=== PATIENT | male | born 1955 | race Caucasian/White ===

== ENCOUNTER → 2024-03-10 | Outpatient (CLI) | payer MEDICARE, BC, SELFPAY ==
[2024-03-10 12:56] LABS: Prostate Specific Antigen < 0.10 ng/mL (0-4.00)
== END | disposition home or self-care (01) ==
LOC: SCTO 11:55
PROVIDERS: PCP Family Medicine; Referring Provider Radiology Therapeutic Radiology; Visit Provider Radiology Therapeutic Radiology
DX: C61 Malignant neoplasm of prostate (principal)
CPT/HCPCS: 36415; 84153

== ENCOUNTER 2024-03-17 14:17 | Outpatient (RCR) | payer MEDICARE, BC, SELFPAY ==
--- NOTE | 2024-03-17 14:53 | CTCFLWUP_ITS ---
[facility] [address] [place], [place] [address] FOLLOW-UP NOTE Date: 03/17/2024 MR#: [id number] Name: OLGA PINON : 1955 Dx: C61 Malignant neoplasm of prostate Identification. Prostate CA status post radical prostatectomy 06/03/2018 at [facility]. PSA has risen to 0.15 on 09/21/2022 and up to 0.18 on July 19, 2022. Recommended at least 1 year or 4 injections of Lupron but decided to stop after only 2 or 6 months wo rth. Most recent PSA less than 0.10 on 03/10/2024. Has had abdominal pain and hematuria but kidney stones reportedly have been discovered and patient rooney s been followed at [facility]. I will see patient in 4 months with another PSA. Electronically signed by: Romel Sherwood M.D. 03/17/2024 2:51 PM
== END 2024-03-31 23:59 | disposition home or self-care (01) ==
LOC: SCTC 14:17
PROVIDERS: PCP Family Medicine; Referring Provider Family Medicine; Visit Provider Radiology Therapeutic Radiology
DX: C61 Malignant neoplasm of prostate (principal); Z90.79 Acquired absence of other genital organ(s)
CPT/HCPCS: 99212; G0463

== ENCOUNTER → 2024-04-09 | Outpatient (CLI) | payer MEDICARE, BC, SELFPAY ==
[2024-04-09 13:43] LABS: Alanine Aminotransferase 47 U/L (10-49); Albumin, Serum 4.8 gm/dL (3.4-4.8); Albumin/Globulin Ratio 2.2 (1.2-2.2); Alkaline Phosphatase 114 U/L (46-116); Anion Gap 11 (7-16); Aspartate Amino Transferase 23 U/L (0-34); BUN/Creatinine Ratio 14 Ratio (12-20); Bilirubin,Total 0.8 mg/dL (0.3-1.2); Blood Urea Nitrogen 13 mg/dL (9-23); Calcium 9.9 mg/dL (8.3-10.6); Calcium (Corrected) 9.9 mg/dL (8.5-10.1); Carbon Dioxide 24.9 mMol/L (20.0-31.0); Cardiac Risk Estimate 2.9 RATIO (4.0-6.7); Chloride 101 mMol/L (98-107); Cholesterol 197 mg/dL (132-200); Creatinine (Component) 0.9 mg/dL (0.6-1.3); Globulin 2.2 gm/dL (2.3-3.5); Glucose 109 mg/dL (74-106); HDL Cholesterol 68 mg/dL (40-60); LDL Cholesterol,Calculated 93 mg/dL (0-130); Osmolality,Calculated 274 (275-295); Potassium 4.1 mMol/L (3.4-5.1); Sodium 137 mMol/L (136-145); Triglycerides 180 mg/dL (30-150); eGFR > 60 See Note
== END | disposition home or self-care (01) ==
LOC: COPL 12:29
PROVIDERS: PCP Family Medicine; Referring Provider Physician Assistant; Visit Provider Physician Assistant
DX: I10 Essential (primary) hypertension (principal); E78.5 Hyperlipidemia, unspecified; R31.9 Hematuria, unspecified
CPT/HCPCS: 36415; 80053; 80061; 81001

== ENCOUNTER → 2024-05-26 | Outpatient (CLI) | payer MEDICARE, BC, SELFPAY ==
[2024-05-26 15:16] LABS: Collection Type, Urine Clean Catch
[2024-05-26 17:03] LABS: Bilirubin,Urine Negative (Negative); Blood,Urine 3+ (Negative); Color,Urine Drk-Yellow (Lt Yel-Yel); Glucose, Urine Negative (Negative); Ketones,Urine Negative (Negative); Leukocyte Esterase,Urine Positive (Negative); Nitrite,Urine Positive (Negative); PH,Urine 5.5 (5.0-7.0); Protein,Urine 2+ (Neg - Trace); RBC,Urine 214 /hpf (0-3); Specific Gravity,Urine 1.023 (1.001-1.035); Squamous Epithelial Cell,Urine 1 /hpf (0-5); Urobilinogen,Urine Negative mg/dL (0.0-1.0); WBC,Urine 425 /hpf (0-5)
[2024-05-26 17:06] LABS: Clarity,Urine Hazy (Clear/Hazy)
== END | disposition home or self-care (01) ==
LOC: SLDO 15:00
PROVIDERS: PCP Physician Assistant; Referring Provider Physician Assistant; Visit Provider Physician Assistant
DX: N39.0 Urinary tract infection, site not specified (principal)
CPT/HCPCS: 81001; 87086

== ENCOUNTER → 2024-06-04 | Outpatient (CLI) | payer MEDICARE, BC, SELFPAY ==
[2024-06-04 16:03] LABS: Collection Type, Urine Clean Catch; RBC,Urine 0 /hpf (0-3); Squamous Epithelial Cell,Urine 0 /hpf (0-5); WBC,Urine 0 /hpf (0-5)
[2024-06-04 17:59] LABS: Bilirubin,Urine Negative (Negative); Blood,Urine Negative (Negative); Clarity,Urine Clear (Clear/Hazy); Color,Urine Yellow (Lt Yel-Yel); Glucose, Urine Negative (Negative); Ketones,Urine Negative (Negative); Leukocyte Esterase,Urine Positive (Negative); Nitrite,Urine Negative (Negative); PH,Urine 5.5 (5.0-7.0); Protein,Urine Trace (Neg - Trace); Specific Gravity,Urine 1.025 (1.001-1.035); Urobilinogen,Urine Negative mg/dL (0.0-1.0)
== END | disposition home or self-care (01) ==
LOC: SLDO 15:34
PROVIDERS: PCP Physician Assistant; Referring Provider Physician Assistant; Visit Provider Physician Assistant
DX: N39.0 Urinary tract infection, site not specified (principal)
CPT/HCPCS: 81001; 87086

== ENCOUNTER → 2024-07-09 | Outpatient (CLI) | payer MEDICARE, BC, SELFPAY ==
[2024-07-09 12:35] LABS: Prostate Specific Antigen < 0.10 ng/mL (0-4.00)
== END | disposition home or self-care (01) ==
LOC: SCTO 10:59
PROVIDERS: PCP Family Medicine; Referring Provider Radiology Therapeutic Radiology; Visit Provider Radiology Therapeutic Radiology
DX: C61 Malignant neoplasm of prostate (principal)
CPT/HCPCS: 36415; 84153

== ENCOUNTER 2024-07-16 13:02 | Outpatient (RCR) | payer MEDICARE, BC, SELFPAY ==
--- NOTE | 2024-07-16 13:31 | CTCFLWUP_ITS ---
[facility] [address] [place], [place] [address] FOLLOW-UP NOTE Date: 07/16/2024 MR#: [id number] Name: OLGA PINON : 1955 Dx: C61 Malignant neoplasm of prostate Identification. Patient with prostate CA robotic assisted radical prostatectomy and bilateral lymph node dissection [facility] 06/03/2018. Final path group 2 (3+4 =7) extraprostatic extension right posterior left posterior lymph node 1 of 40 involved. pT3aN1. PSA also noted to rise to 0.18 on 10/10/2022. Received initial Lupron 03/04/2023 and had second dose on 06/03/2023. 6840 cGy completed on 07/09/2023. Additional doses of Lupron recommended but patient elected to stop at only 2. Most recent PSA July 09, 2024 less than 0.10 States that he has had UTI symptoms since last night and put himself on Pyridium and antibiotics. Patient was seeing his primary care physician regarding this matter. For now patient appears to be in remission, both biochemically and clinically. I will see him again in 6 months with another PSA. Electronically signed by: Romel Sherwood M.D. 07/16/2024 1:28 PM
== END 2024-07-29 23:59 | disposition home or self-care (01) ==
LOC: SCTC 13:02
PROVIDERS: PCP Family Medicine; Referring Provider Family Medicine; Visit Provider Radiology Therapeutic Radiology
DX: Z08 Encounter for follow-up examination after completed treatment for malignant neoplasm (principal); Z85.46 Personal history of malignant neoplasm of prostate; Z90.79 Acquired absence of other genital organ(s); Z92.3 Personal history of irradiation
CPT/HCPCS: 99213; G0463

== ENCOUNTER → 2024-08-25 | Outpatient (CLI) | payer MEDICARE, BC, SELFPAY ==
[2024-08-25 15:24] LABS: Amphetamine/Methamp Scrn,U Negative (Negative); Barbiturate Screen,Urine Negative (Negative); Benzodiazepines Screen,Urine Negative (Negative); Benzoylecgonine Screen, Ur Negative (Negative); Fentanyl Screen,Urine Negative (Negative); Opiate Screen,Urine Positive (Negative); THC Screen,Urine Negative (Negative)
== END | disposition home or self-care (01) ==
LOC: SLDO 14:11
PROVIDERS: PCP Family Medicine; Referring Provider Physician Assistant; Visit Provider Physician Assistant
DX: Z79.891 Long term (current) use of opiate analgesic (principal)
CPT/HCPCS: 80307

== ENCOUNTER → 2024-09-15 | Outpatient (CLI) | payer MEDICARE, BC, SELFPAY ==
[2024-09-15 13:55] LABS: Basophils % (Auto) 0 % (0-2.5); Eosinophils # (Auto) 0.1 Thou/mm3 (0.0-0.5); Eosinophils % (Auto) 1 % (0-10); Hematocrit 40.6 % (41.0-53.0); Immature Granulocytes % (Auto) 1 % (0-0); Immature Granulocytes Auto 0.04 Thou/mm3 (0.00-0.00); Lymphocytes # (Auto) 1.2 Thou/mm3 (1.0-4.8); Lymphocytes % (Auto) 17 % (10-50); Mean Corpuscular HGB Conc 34.5 g/dl (31.0-37.0); Mean Corpuscular Hemoglobin 30.9 pg (25.0-35.0); Mean Corpuscular Volume 90 fL (80-100); Monocytes # (Auto) 0.5 Thou/mm3 (0.0-0.8); Monocytes % (Auto) 7 % (0-12); Neutrophils # (Auto) 5.3 Thou/mm3 (1.8-7.7); Neutrophils % (Auto) 73 % (37-80); Nucleated Red Blood Cell % 0 /100 WBC (0); Platelet Count 257 Thou/mm3 (140-440); RDW Standard Deviation 42.2 fL (35.1-43.9); Red Blood Count 4.53 Miln/mm3 (4.50-5.90); White Blood Count 7.2 Thou/mm3 (3.8-10.6)
[2024-09-15 14:16] LABS: Alanine Aminotransferase 64 U/L (10-49); Albumin, Serum 4.5 gm/dL (3.4-4.8); Alkaline Phosphatase 124 U/L (46-116); Anion Gap 11 (7-16); Aspartate Amino Transferase 36 U/L (0-34); BUN/Creatinine Ratio 14 Ratio (12-20); Bilirubin,Direct 0.2 mg/dL (0.0-0.3); Bilirubin,Total 0.7 mg/dL (0.3-1.2); Blood Urea Nitrogen 13 mg/dL (9-23); Calcium 9.3 mg/dL (8.3-10.6); Carbon Dioxide 25.4 mMol/L (20.0-31.0); Cardiac Risk Estimate 2.5 RATIO (4.0-6.7); Chloride 102 mMol/L (98-107); Cholesterol 190 mg/dL (132-200); Creatinine (Component) 0.9 mg/dL (0.6-1.3); Free T4 (Free Thyroxine) 1.13 ng/dL (0.89-1.76); Glucose 101 mg/dL (74-106); HDL Cholesterol 77 mg/dL (40-60); LDL Cholesterol,Calculated 81 mg/dL (0-130); Osmolality,Calculated 275 (275-295); Potassium 4.2 mMol/L (3.4-5.1); Sodium 138 mMol/L (136-145); Thyroid Stimulating Hormone 1.34 uIU/mL (0.55-4.78); Total Protein 6.8 gm/dL (5.7-8.2); Triglycerides 158 mg/dL (30-150); eGFR > 60 See Note
== END | disposition home or self-care (01) ==
LOC: COPL 12:46
PROVIDERS: PCP Family Medicine; Referring Provider Internal Medicine Cardiovascular Disease; Visit Provider Internal Medicine Cardiovascular Disease
DX: I10 Essential (primary) hypertension (principal); E78.2 Mixed hyperlipidemia; I25.118 Atherosclerotic heart disease of native coronary artery with other forms of angina pectoris; I49.9 Cardiac arrhythmia, unspecified
CPT/HCPCS: 36415; 80048; 80061; 80076; 84439; 84443; 85025

== ENCOUNTER → 2024-09-30 | Outpatient (CLI) | payer MEDICARE, BC, SELFPAY ==
[2024-09-30 11:37] LABS: Basophils # (Auto) 0.0 Thou/mm3 (0.0-0.2); Basophils % (Auto) 0 % (0-2.5); Eosinophils # (Auto) 0.1 Thou/mm3 (0.0-0.5); Eosinophils % (Auto) 1 % (0-10); Hematocrit 40.4 % (41.0-53.0); Hemoglobin 14.3 g/dL (13.5-16.0); Immature Granulocytes Auto 0.02 Thou/mm3 (0.00-0.00); Lymphocytes # (Auto) 1.3 Thou/mm3 (1.0-4.8); Lymphocytes % (Auto) 14 % (10-50); Mean Corpuscular HGB Conc 35.4 g/dl (31.0-37.0); Mean Corpuscular Hemoglobin 31.5 pg (25.0-35.0); Mean Corpuscular Volume 89 fL (80-100); Monocytes # (Auto) 0.5 Thou/mm3 (0.0-0.8); Monocytes % (Auto) 5 % (0-12); Neutrophils # (Auto) 7.3 Thou/mm3 (1.8-7.7); Neutrophils % (Auto) 79 % (37-80); Nucleated Red Blood Cell # 0.00 Thou/mm3 (0.00-0.00); Nucleated Red Blood Cell % 0 /100 WBC (0); Platelet Count 288 Thou/mm3 (140-440); RDW Standard Deviation 42.7 fL (35.1-43.9); Red Blood Count 4.54 Miln/mm3 (4.50-5.90); White Blood Count 9.2 Thou/mm3 (3.8-10.6)
[2024-09-30 11:48] LABS: Glucose Estimated Average 97 mg/dL (80-131); Hemoglobin A1C 5.0 % Hgb (4.8-6.0)
[2024-09-30 11:52] LABS: Prostate Specific Antigen < 0.10 ng/mL (0-4.00)
[2024-09-30 11:57] LABS: Alanine Aminotransferase 79 U/L (10-49); Albumin, Serum 4.6 gm/dL (3.4-4.8); Albumin/Globulin Ratio 1.9 (1.2-2.2); Alkaline Phosphatase 128 U/L (46-116); Anion Gap 9 (7-16); Aspartate Amino Transferase 43 U/L (0-34); BUN/Creatinine Ratio 13 Ratio (12-20); Bilirubin,Total 0.9 mg/dL (0.3-1.2); Blood Urea Nitrogen 12 mg/dL (9-23); Calcium 9.4 mg/dL (8.3-10.6); Calcium (Corrected) 9.4 mg/dL (8.5-10.1); Carbon Dioxide 23.9 mMol/L (20.0-31.0); Chloride 106 mMol/L (98-107); Creatinine (Component) 0.9 mg/dL (0.6-1.3); Globulin 2.4 gm/dL (2.3-3.5); Glucose 105 mg/dL (74-106); Osmolality,Calculated 277 (275-295); Potassium 4.0 mMol/L (3.4-5.1); Sodium 139 mMol/L (136-145); Thyroid Stimulating Hormone 2.07 uIU/mL (0.55-4.78); Total Protein 7.0 gm/dL (5.7-8.2); Vitamin B12 1609 pg/mL (211-911); Vitamin D 25 Hydroxy Total 42.9 ng/mL (7.3-40.2); eGFR > 60 See Note
[2024-09-30 13:09] LABS: Collection Type, Urine Clean Catch
[2024-09-30 13:48] LABS: Bacteria,Urine 1+; Bilirubin,Urine 1+ (Negative); Blood,Urine 3+ (Negative); Color,Urine Drk-Orange (Lt Yel-Yel); Glucose, Urine Negative (Negative); Ketones,Urine Negative (Negative); Leukocyte Esterase,Urine Positive (Negative); Nitrite,Urine Positive (Negative); PH,Urine 6.0 (5.0-7.0); Protein,Urine 2+ (Neg - Trace); RBC,Urine 387 /hpf (0-3); Specific Gravity,Urine 1.024 (1.001-1.035); Squamous Epithelial Cell,Urine 1 /hpf (0-5); Urobilinogen,Urine 3.0 mg/dL (0.0-1.0); WBC,Urine 1208 /hpf (0-5)
[2024-09-30 14:28] LABS: Clarity,Urine Cloudy (Clear/Hazy); Culture Indicated,Urine Yes
== END | disposition home or self-care (01) ==
LOC: COPL 11:05
PROVIDERS: PCP Family Medicine; Referring Provider Physician Assistant; Visit Provider Physician Assistant
DX: E78.5 Hyperlipidemia, unspecified (principal); I10 Essential (primary) hypertension; E55.9 Vitamin D deficiency, unspecified; R94.5 Abnormal results of liver function studies; C61 Malignant neoplasm of prostate; R73.01 Impaired fasting glucose
CPT/HCPCS: 36415; 80053; 81001; 82306; 82607; 83036; 84153; 84443; 85025; 87086

== ENCOUNTER → 2024-10-05 | Outpatient (CLI) | payer MEDICARE, BC, SELFPAY ==
[2024-10-08 06:33] LABS: Fecal Globin Result NOT DETECTED (NOT DETECTED)
== END | disposition home or self-care (01) ==
LOC: SLDO 14:29
PROVIDERS: PCP Physician Assistant; Referring Provider Physician Assistant; Visit Provider Physician Assistant
DX: E78.5 Hyperlipidemia, unspecified (principal); I10 Essential (primary) hypertension; E55.9 Vitamin D deficiency, unspecified; R94.5 Abnormal results of liver function studies; C61 Malignant neoplasm of prostate; R73.01 Impaired fasting glucose
CPT/HCPCS: 82274; G0328

== ENCOUNTER → 2024-12-09 | Outpatient (CLI) | payer MEDICARE, BC, SELFPAY ==
[2024-12-09 14:21] LABS: Collection Type, Urine Clean Catch
[2024-12-09 17:29] LABS: Bilirubin,Urine Negative (Negative); Blood,Urine 3+ (Negative); Color,Urine Yellow (Lt Yel-Yel); Glucose, Urine Negative (Negative); Ketones,Urine Negative (Negative); Leukocyte Esterase,Urine Positive (Negative); Nitrite,Urine Negative (Negative); PH,Urine 5.5 (5.0-7.0); Protein,Urine 1+ (Neg - Trace); RBC,Urine 128 /hpf (0-3); Specific Gravity,Urine 1.023 (1.001-1.035); Squamous Epithelial Cell,Urine 3 /hpf (0-5); Urobilinogen,Urine Negative mg/dL (0.0-1.0); WBC,Urine 881 /hpf (0-5)
[2024-12-09 17:41] LABS: Clarity,Urine Cloudy (Clear/Hazy)
== END | disposition home or self-care (01) ==
LOC: SLDO 14:11
PROVIDERS: Referring Provider Registered Nurse; Visit Provider Registered Nurse
DX: N39.0 Urinary tract infection, site not specified (principal)
CPT/HCPCS: 81001; 87086

== ENCOUNTER → 2025-01-11 | Outpatient (CLI) | payer MEDICARE, BC, SELFPAY ==
[2025-01-11 14:04] LABS: Prostate Specific Antigen < 0.10 ng/mL (0-4.00)
== END | disposition home or self-care (01) ==
LOC: SCTO 12:10
PROVIDERS: PCP Family Medicine; Referring Provider Radiology Therapeutic Radiology; Visit Provider Radiology Therapeutic Radiology
DX: C61 Malignant neoplasm of prostate (principal)
CPT/HCPCS: 36415; 84153

== ENCOUNTER 2025-01-14 13:01 | Outpatient (RCR) | payer MEDICARE, BC, SELFPAY ==
--- NOTE | 2025-01-14 13:32 | CTCFLWUP_ITS ---
[facility] [address] [place], [place] [address] FOLLOW-UP NOTE Date: 01/14/2025 MR#: [id number] Name: OLGA PINON : 1955 Dx: C61 Malignant neoplasm of prostate Identification. Patient with prostate CA status post robotic assisted prostatectomy bilateral lymph node dissection [facility] 06/03/2018. Final path group 2 (3+4 equal 7) extraprostatic stanchion right posterior left posterior lymph node 1 of 40 involved. pT3aN1 stage Yamileth. PSA also noted be rising to 0.18 on 10/10/2022. Received initial Lupron 03/04/2023 and had second dose 06/03/2023. 6840 cGy completed 07/09/2023. Additional dose of Lupron along with one of the newer antiandrogens recommended but patient elected to stop and only 2. Most recent PSA 01/11/2025 less than 0.10. A#1 stage IV ApT3 N1c of the prostate status post prostatectomy [facility] 06/03/2018. A#2. Elected to have only limited hormone manipulation receiving radiation therapy 1640 cGy completed 07/09/2023. Minimal residual pelvic symptoms. A#4. PSA remains low at less than 0.10 on 01/12/2024. A#5. Urged to be followed by primary care provider regarding high BP noted today 160/90. Recently had UTI treated with antibiotics. Cc: Adis Garvey MD Electronically signed by: Romel Sherwood M.D. 01/14/2025 1:30 PM
== END 2025-01-29 23:59 | disposition home or self-care (01) ==
LOC: SCTC 13:01
PROVIDERS: PCP Family Medicine; Referring Provider Family Medicine; Visit Provider Radiology Therapeutic Radiology
DX: C61 Malignant neoplasm of prostate (principal); Z90.79 Acquired absence of other genital organ(s); Z92.3 Personal history of irradiation
CPT/HCPCS: 99213; G0463

== ENCOUNTER → 2025-03-12 | Outpatient (CLI) | payer MEDICARE, BC, SELFPAY | END | disposition home or self-care (01) | LOC: SLDO 14:31 | PROVIDERS: PCP Physician Assistant; Referring Provider Physician Assistant; Visit Provider Physician Assistant | DX: N39.0 Urinary tract infection, site not specified (principal) | CPT/HCPCS: 87086 ==

== ENCOUNTER 2025-03-19 14:04 | Emergency (ER) | payer MEDICARE, BC, SELFPAY ==
[2025-03-19 14:11] VITALS: BP 134/74; PULSE 89; RESP 20; TEMP 36.8; O2SAT 100; BMI 33.2
[2025-03-19 14:12] VITALS: PULSE 90; O2SAT 99
--- NOTE | 2025-03-19 14:45 | XR_ITS ---
Examination: CT cervical spine without contrast 2-D sagittal reconstructions 2-D coronal reconstructions 3-D reconstructions. Exam date and time: March 19, 2025, 1632 hours INDICATIONS: Patient fell today with injury to the neck, neck pain CTDI:vol (mGy) 16.7 DLP: (mGycm) 369 Technique: Multiple 2 mm axial sections of the cervical spine have been obtained. The coronal and sagittal reconstructions have been obtained. 3-D reconstructions have been obtained. Low dose protocols were performed. One or more of the following dose reduction techniques were used; automated exposure control, adjustment of the mA and/or KV according to patient size, use of iterative reconstruction technique. Findings: Axial sections demonstrate intact base of the skull. C1 exhibit satisfactory relationship to the odontoid. No acute cervical vertebral body fracture seen. Alignment posterior spinous processes satisfactory. Impression: No acute cervical fracture.
--- NOTE | 2025-03-19 14:45 | XR_ITS ---
Examination: CT chest with intravenous contrast CT abdomen with intravenous contrast CT pelvis with intravenous contrast 2-D coronal and sagittal reconstructions Time of exam: March 19, 2025, 1637 hours INDICATIONS: Patient fell today with injury to the chest and abdomen, chest pain abdomen pain CTDI: vol (mGy) : 9.67 DLP: (mGycm): 765 Technique: Multiple axial images of the chest, abdomen and pelvis with intravenous contrast, 3.0 mm slice thickness. Images obtained post intravenous injection Isovue 370 60 cc. 2-D sagittal and coronal reconstructions. Low dose protocols were performed. One or more of the following dose reduction techniques were used; automated exposure control, adjustment of the mA and/or KV according to patient size, use of iterative reconstruction technique. Findings: Thoracic aorta pulmonary arteries intact Heavy calcification left anterior descending coronary artery. No hemopericardium No pneumothorax pulmonary contusion or hemothorax The manubrium and the body of the sternum are intact No thoracic or lumbar vertebral body compression fracture Sacral segments appear intact Acute fractures left fifth, sixth, seventh ribs laterally without significant displacement No visualized liver splenic or renal laceration, no perinephric hematoma No gallstones Abdominal aorta intact with no free blood in the abdomen Negative for pneumoperitoneum Normal appendix Urinary bladder intact Bones of the pelvis and hips appear intact IMPRESSION: Acute nondisplaced fractures left fifth, sixth, seventh ribs Thoracic aorta pulmonary arteries intact No hemopericardium, pneumothorax, pulmonary contusion or hemothorax No abdominal parenchymal laceration Abdominal aorta intact No free body in the abdomen or pelvis
--- NOTE | 2025-03-19 14:45 | XR_ITS ---
Examination: CT brain head without contrast. 2-D sagittal coronal reconstructions Date and time of exam: March 19, 2025, 1629 hours, comparison January 26, 2005 INDICATIONS: Patient fell today with injury to the back of the head, head pain CTDI: vol (mGy): 56 DLP: (mGycm): 1273 Technique: Multiple CT axial sections of the brain have been obtained, 5 mm slice thickness. Contrast has not been administered. 2-D sagittal, coronal reconstructions have been obtained Low dose protocols were performed. One or more of the following dose reduction techniques were used; automated exposure control, adjustment of the mA and/or KV according to patient size, use of iterative reconstruction technique. Findings: No significant ventricular enlargement. Intra-axial or extra-axial hemorrhage density is not seen. No mass effect or midline shift Basal cisterns are not remarkable. Fourth ventricle is midline. Cranial vault intact. Impression: Negative for acute hemorrhage, mass effect or midline shift
--- NOTE | 2025-03-19 14:47 | PD.EDFALL ---
ED Fall Injury RME/HPI General Chief Complaint: Fall Stated Complaint: FALL Time Seen by Provider: 03/19/25 14:08 Arrival date/time: 03/19/25 14:04 69-year-old male patient with past medical history of hypertension, currently not on any blood thinners, came in for evaluation regarding fall. Patient fell off the ladder about 10 feet high landing on his back hitting the head and back on the brakes first. Patient denies any LOC patient complained of headache, neck pain, left chest wall pain, low back pain, severity moderate. According to him after the fall he was able to ambulate. Denies any shortness of breath, denies any vomiting. Patient was given pain medication on the way to the emergency room by EMS. Related Data Home Medications ?Medication ?Instructions ?Recorded ?Confirmed atorvastatin 20 mg tablet 20 mg PO QDAY 12/27/17 03/12/23 cholecalciferol (vitamin D3) 50 2,000 unit PO QDAY 12/27/17 03/12/23 mcg (2,000 unit) capsule lisinopril 10 mg tablet 10 mg PO QDAY 12/27/17 03/12/23 cyanocobalamin (vitamin B-12) 500 500 mcg PO QDAY 02/04/18 03/12/23 mcg tablet (Vitamin B-12) tadalafil 20 mg tablet (Cialis) 20 mg PO DIRECTED PRN 08/29/21 03/12/23 Previous Rx's ?Medication ?Instructions ?Recorded lidocaine 5 % topical patch 1 patch topical QDAY #15 ea 03/19/25 methocarbamol 500 mg tablet 500 mg PO Q8H PRN pain and spasm 03/19/25 #20 tabs Allergies Allergy/AdvReac Type Severity Reaction Status Date / Time No Known Allergies Allergy Verified 03/19/25 14:11 Review of Systems Review of Systems Narrative Review of Systems: Review of system reviewed and within normal limits except mentioned in HPI ED Exam Narrative Physical exam: VITAL SIGNS: Reviewed. GENERAL APPEARANCE: Alert and interactive, follows commands, no acute distress, HEAD AND FACE: Non-traumatic. ENT: PERRL, pink conjunctivitis, eyelid no trauma, Mucous membrane moist. NECK: Supple, posterior neck tenderness, no nuchal rigidity. CHEST: Left posterior rib cage tenderness, no crepitus, no paradoxical movement, no retractions. LUNGS: Clear, well ventilated, symmetric, no rales, no wheezing, no ronchi, no stridor, good breath sounds bilaterally. HEART: Regular rate, regular rhythm, no murmur, no gallops. ABDOMEN: Soft, positive bowel sounds, nondistended, no guarding, nontender, no rebound, no masses, RECTAL: Deferred. GENITAL: Deferred. NEUROLOGICAL: Gross motor function intact sensory function intact, Appropriate for age. MUSCULOSKELETAL: low back tenderness, full range of motion. EXTREMITIES: Nontender, full range of motion. SKIN: Color pink, dry, no rash, no lacerations, no abrasions, no contusions. LYMPHATICS: Deferred. Course Quality Measures none Orders Category Date Time Status CT Screening NOW Care 03/19/25 14:46 Active Incentive Spirometry Treatment NOW Care 03/19/25 17:[address] cervical spine wo con Stat Exams 03/19/25 14:[address] chest abdomen pelvis w Stat Exams 03/19/25 14:[address] head/brain wo con Stat Exams 03/19/25 14:45 Completed CBC [CBC] Stat Lab 03/19/25 15:20 Completed CMP [Comprehensive Metabolic Panel] Stat Lab 03/19/25 15:20 Completed PTT [Partial Thromboplastin Time] Stat Lab 03/19/25 15:20 Completed HYDROmorphone INJ [Dilaudid Inj] Med 03/19/25 17:43 Discontinued 1 mg IVP X1 ONE Lidocaine 5% Patch Med 03/19/25 17:43 Discontinued 1 patch TOP X1 ONE Morphine* Inj Med 03/19/25 15:09 Discontinued 4 mg IVP X1 ONE Ondansetron Inj [Zofran Inj] Med 03/19/25 15:09 Discontinued 4 mg IVP X1 ONE Vital Signs Vital signs: Vital Signs Temperature 98.3 F 03/19/25 14:11 Pulse Rate 89 03/19/25 14:11 Respiratory Rate 20 03/19/25 14:11 Blood Pressure 134/74 H 03/19/25 14:11 Pulse Oximetry (%) 100 03/19/25 14:11 Oxygen Delivery Method Room Air 03/19/25 14:11 Fall MDM Narrative MDM Narrative:: 69-year-old male patient with past medical history of hypertension, currently not on any blood thinners, came in for evaluation regarding fall. Patient fell off the ladder about 10 feet high landing on his back hitting the head and back on the brakes first. Patient denies any LOC patient complained of headache, neck pain, left chest wall pain, low back pain, severity moderate. According to him after the fall he was able to ambulate. Denies any shortness of breath, denies any vomiting. Patient was given pain medication on the way to the emergency room by EMS. CT scan of the head came back unremarkable. CT scan of the neck came back unremarkable CT scan of the chest abdomen and pelvis showed Acute nondisplaced fractures left fifth, sixth, seventh ribs Thoracic aorta pulmonary arteries intact No hemopericardium, pneumothorax, pulmonary contusion or hemothorax No abdominal parenchymal laceration Abdominal aorta intact No free body in the abdomen or pelvis Patient stable through a couple Of normal. Results discussed with the patient. Patient was given lidocaine patch, morphine, Zofran, and Dilaudid. Patient is ambulatory prior to discharge. Pain is tolerable according to him. Patient is satting 97% on room air Incentive spirometry was done in the emergency room and had an education regarding how to use it also by respiratory therapist. He is stable for discharge home Patient data External records reviewed:: None Clinical information provided by:: patient and family Social determinants that could affect healthcare access:: none Patient has the following chronic illnesses:: hypertension, chronic pain syndrome How is presenting disease/condition affected by chronic disease/condition?: uneffected by Evaluation data The following diagnostics were reviewed and interpreted by me:: lab results and radiology exam(s) Lab and/or radiology exams considered but not ordered:: None Interpretation Summary: See above Medications / Prescriptions Medications or Prescriptions considered but not ordered:: None Medication administrations:: Medication Administration History Discontinued Medications Hydromorphone HCl (Hydromorphone Inj 2 Mg/Ml Vial) 1 mg IVP X1 ONE Stop: 03/19/25 17:44 Last Admin: 03/19/25 17:54 Dose: 1 mg Documented By: EF Lidocaine (Lidocaine 5% 1 Patch) 1 patch TOP X1 ONE Stop: 03/19/25 17:44 Last Admin: 03/19/25 17:54 Dose: 1 patch Documented By: EF Morphine Sulfate (Morphine Sulf Inj 4 Mg/Ml Vial) 4 mg IVP X1 ONE Stop: 03/19/25 15:10 Last Admin: 03/19/25 15:22 Dose: 4 mg Documented By: EF Ondansetron HCl (Ondansetron Inj 2 Mg/Ml Inj 2 Ml) 4 mg IVP X1 ONE; Protocol Stop: 03/19/25 15:10 Last Admin: 03/19/25 15:22 Dose: 4 mg Documented By: JERAMIE See above Consultations Consultation(s) initiated? (list below): No Diagnosis Fall Differential Diagnosis: syncope, compression fracture and other (Multiple rib fracture, lung contusion pneumothorax status post fall) Most likely diagnosis given after review of the tests above:: Multiple rib fracture, status was fall Admission Indicated Admission indicated?: not indicated Admission Request Was there a request for admission?: No Disposition Plan Disposition Plan: Discharge Discharge Attestation Discharge Attestation: The patient and all family members were given an opportunity to ask questions and understood the discharge instructions. Discharge instructions specifically effects, indications for sooner follow up or return to the emergency department, and the expected course of current diagnosis. Patient condition: Stable Discharge Plan Plan Patient Disposition: HOME (Self Care) Discharge Disposition comment: Stable Prescriptions/Referrals Prescriptions/Med Rec: New lidocaine 5 % adhesive patch,medicated 1 patch topical QDAY Qty: 15 0RF Rx Instructions: leave on most painful area for up to 12 hrs methocarbamol 500 mg tablet 500 mg PO Q8H PRN (Reason: pain and spasm) Qty: 20 0RF No Action atorvastatin 20 mg tablet 20 mg PO QDAY lisinopril 10 mg tablet 10 mg PO QDAY cholecalciferol (vitamin D3) 2,000 unit capsule 2,000 unit PO QDAY tadalafil [Cialis] 20 mg tablet 20 mg PO DIRECTED PRN Rx Instructions: administer approximately 30min before sexual activity; do not use more than 1 dose per 24hrs cyanocobalamin (vitamin B-12) [Vitamin B-12] 500 mcg Tablet 500 mcg PO QDAY Referrals: Adis Miller MD [Primary Care Provider, Family Practice] - In 1 week Problem List Clinical Impression: Fall, Closed rib fracture Patient/Caregiver Discharge Instructions Discharge Activity: activity as tolerated Education Materials: ED Rib Fracture Additional Instructions: Thank you for the opportunity for serving you today. You are stable for discharged . You are advised to: Follow-up with your PCP in 1 to 2 days Return to ED for worsening of symptoms Increase oral fluids Take medication as prescribed Take your on pain medication as needed for pain Use your incentive spirometer as instructed Print Language: Bots[place] Stand Alone Forms: Tali Award Info., Patient Portal Info Letter PA/PHOTOENGRAVING PHOTOGRAPHER Supervising Physician PA/PHOTOENGRAVING PHOTOGRAPHER Supervising Physician: MD Mateusz
[2025-03-19] MEDS: MORPHINE SULF INJ 4 MG/ML VIAL IVP (15:22)
[2025-03-19] MEDS: ONDANSETRON INJ 2 MG/ML INJ 2 ML 4 MG IVP (15:22)
[2025-03-19 15:30] LABS: Basophils # (Auto) 0.0 Thou/mm3 (0.0-0.2); Basophils % (Auto) 0 % (0-2.5); Eosinophils # (Auto) 0.0 Thou/mm3 (0.0-0.5); Eosinophils % (Auto) 0 % (0-10); Hematocrit 40.2 % (41.0-53.0); Hemoglobin 13.6 g/dL (13.5-16.0); Immature Granulocytes Auto 0.08 Thou/mm3 (0.00-0.00); Lymphocytes # (Auto) 0.7 Thou/mm3 (1.0-4.8); Lymphocytes % (Auto) 5 % (10-50); Mean Corpuscular HGB Conc 33.8 g/dl (31.0-37.0); Mean Corpuscular Hemoglobin 30.2 pg (25.0-35.0); Mean Corpuscular Volume 89 fL (80-100); Monocytes # (Auto) 1.1 Thou/mm3 (0.0-0.8); Monocytes % (Auto) 7 % (0-12); Neutrophils # (Auto) 12.4 Thou/mm3 (1.8-7.7); Neutrophils % (Auto) 87 % (37-80); Nucleated Red Blood Cell # 0.00 Thou/mm3 (0.00-0.00); Nucleated Red Blood Cell % 0 /100 WBC (0); Platelet Count 260 Thou/mm3 (140-440); RDW Standard Deviation 42.7 fL (35.1-43.9); Red Blood Count 4.51 Miln/mm3 (4.50-5.90); White Blood Count 14.3 Thou/mm3 (3.8-10.6)
[2025-03-19 15:51] LABS: Partial Thromboplastin Time 22.2 Seconds (22.0-36.0)
[2025-03-19 15:52] LABS: Alanine Aminotransferase 84 U/L (10-49); Albumin, Serum 4.5 gm/dL (3.4-4.8); Albumin/Globulin Ratio 1.7 (1.2-2.2); Alkaline Phosphatase 107 U/L (46-116); Anion Gap 12 (7-16); Aspartate Amino Transferase 71 U/L (0-34); BUN/Creatinine Ratio 13 Ratio (12-20); Bilirubin,Total 0.7 mg/dL (0.3-1.2); Blood Urea Nitrogen 14 mg/dL (9-23); Calcium 9.3 mg/dL (8.3-10.6); Calcium (Corrected) 9.3 mg/dL (8.5-10.1); Carbon Dioxide 23.9 mMol/L (20.0-31.0); Chloride 104 mMol/L (98-107); Creatinine (Component) 1.1 mg/dL (0.6-1.3); Estimated Creatinine Clearance 82.7 mL/min (>60); Globulin 2.6 gm/dL (2.3-3.5); Glucose 118 mg/dL (74-106); Osmolality,Calculated 280 (275-295); Potassium 4.3 mMol/L (3.4-5.1); Sodium 140 mMol/L (136-145); Total Protein 7.1 gm/dL (5.7-8.2); eGFR > 60 See Note
[2025-03-19 16:47] VITALS: BP 137/71; PULSE 85; RESP 19; TEMP 37.4; O2SAT 97
[2025-03-19] MEDS: HYDROmorphone INJ 2 MG/ML VIAL 1 MG IVP (17:54)
[2025-03-19] MEDS: LIDOCAINE 5% 1 PATCH TOP (17:54)
[2025-03-19 18:38] VITALS: BP 140/78; PULSE 78; RESP 16; TEMP 37.1; O2SAT 97
[2025-03-19 19:43] VITALS: BP 148/72; PULSE 79; RESP 17; TEMP 36.7; O2SAT 96
== END 2025-03-19 19:46 | disposition home or self-care (01) ==
PROVIDERS: Nurse Practitioner Family; Emergency Provider Family Medicine; PCP Family Medicine
DX: S22.42XA Multiple fractures of ribs, left side, initial encounter for closed fracture (principal); S19.9XXA Unspecified injury of neck, initial encounter; S09.90XA Unspecified injury of head, initial encounter; W11.XXXA Fall on and from ladder, initial encounter
CPT/HCPCS: 36415; 70450; 71260; 72125; 74177; 80053; 85025; 85730; 96374; 96375; 99283; A4649; J1171; J2270; J2405; J3490; Q9967; A9270